=== PATIENT | female | born 1955 ===

== ENCOUNTER → 2020-12-07 | Outpatient (CLI) | payer OTHER | LOC: LAB 15:50 → LAB SHORT 15:50 | DX: L08.9 Local infection of the skin and subcutaneous tissue, unspecified (principal); C44.729 Squamous cell carcinoma of skin of left lower limb, including hip; B35.3 Tinea pedis; L40.1 Generalized pustular psoriasis; Z71.89 Other specified counseling | CPT/HCPCS: 87070; 87205 ==